=== PATIENT | female | born 1955 ===

== ENCOUNTER 2018-06-15 09:57 | Outpatient (CLI) | payer OTHER | END 2018-06-15 11:00 | disposition home or self-care (01) | LOC: NUCLEAR 09:57 | DX: E21.0 Primary hyperparathyroidism (principal) | CPT/HCPCS: 78070; A9500 ==

== ENCOUNTER 2021-05-03 07:57 | Outpatient (CLI) | payer OTHER | END 2021-05-03 08:02 | disposition home or self-care (01) | LOC: NUCLEAR 07:57 | PROVIDERS: ATTEND Internal Medicine Endocrinology, Diabetes & Metabolism | DX: E21.0 Primary hyperparathyroidism (principal) | CPT/HCPCS: 78070; A9500 ==